=== PATIENT | male | born 1945 | race African-American/Black ===

== ENCOUNTER 2017-12-11 03:43 | Emergency (ER) | payer MEDICARE, MEDICAID ==
[~2017-12-11] VITALS: Ht 177.8 cm; Wt 86.0 kg
[2017-12-11] MEDS ORDERED: FAMOTIDINE 20MG/2ML VIAL IV STA (05:13)
[2017-12-11] MEDS ORDERED: MORPHINE SULFATE 4 MG/ML CPJ (NOT FOR IM USE) IV STA (05:13)
[2017-12-11] MEDS ORDERED: ONDANSETRON HCL 4MG/2ML INJ IV STA (05:13)
[2017-12-11] MEDS ORDERED: SODIUM CHLORIDE 0.9% 1,000 ML IV ONE ×2 (05:13→08:15)
[2017-12-11 06:25] LABS: CLARITY URINE CLEAR (CLEAR); COLOR URINE YELLOW (YELLOW); KETONES URINE NEGATIVE (NEGATIVE); LEUKOCYTE ESTERASE URINE NEGATIVE (NEGATIVE); NITRITE URINE NEGATIVE (NEGATIVE); OCCULT BLOOD URINE NEGATIVE (NEGATIVE); PH URINE 7.5 (4.5-8.0); PROTEIN URINE NEGATIVE (NEGATIVE); SPECIFIC GRAVITY URINE 1.008 (1.005-1.030); UROBILINOGEN URINE 0.2 E.U./dL (0.2-1.0)
[2017-12-11 06:25] LABS: BASOPHILS % 0.6 % (0.0-2.0); EOSINOPHILS % 1.8 % (0.0-5.0); HEMATOCRIT. 42.1 % (42.0-52.0); HEMOGLOBIN. 14.1 g/dL (14.0-18.0); LYMPHOCYTES % 36.4 % (20.0-50.0); MEAN CORPUSCULAR HEMOGLOBIN 31.1 pg (28.0-32.0); MEAN CORPUSCULAR VOLUME 92.8 fL (80.0-94.0); MEAN PLATELET VOLUME 8.9 fl (7.4-10.4); MONOCYTES % 11.9 % (2.0-8.0); NEUTROPHILS % 49.3 % (40.0-76.0); PLATELET 182 x1000/uL (130-400); RED BLOOD CELL COUNT 4.54 mill/uL (4.7-6.1); RED CELL DISTRIBUTION WIDTH 14.7 % (11.6-14.6)
[2017-12-11 06:29] LABS: CHLORIDE 103 mEq/L (98-107)
[2017-12-11] MEDS ORDERED: MORPHINE SULFATE 4 MG/ML CPJ (NOT FOR IM USE) IV ONE (09:45)
[2017-12-11] MEDS ORDERED: IOHEXOL-300 100 ML BOTTLE ONE (09:46)
[2017-12-11 10:30] VITALS: BP 140/79
== END 2017-12-11 10:30 | disposition home or self-care (01) ==
LOC: ER 04:24
DX: K29.20 Alcoholic gastritis without bleeding (principal); F10.10 Alcohol abuse, uncomplicated; I10 Essential (primary) hypertension; I25.2 Old myocardial infarction; Z98.890 Other specified postprocedural states; Y90.9 Presence of alcohol in blood, level not specified
CPT/HCPCS: 36415; 71045; 74177; 80053; 81003; 83605; 83690; 84484; 85025; 93005; 96361; 96374; 96375; 99285; J2270; J2405; J3490; J7030; Q9967

== ENCOUNTER 2021-12-09 14:15 | Emergency (ER) | payer MEDICARE, MEDICAID ==
[~2021-12-09] VITALS: Ht 177.8 cm; Wt 82.0 kg
[~2021-12-09 14:15] MED LIST: AMLO10TA80 PO; ASPI-1406 PO; ATOR40TA70 PO; BRIM.2 EACHEYE; CALC-38 PO; FINA5TAB11 PO; HYDR-4001 PO; LATA2.5D14 EACHEYE; METO25TA6 PO; OMEP40CA20 PO; TAMS-11 MT; ZOLP10TA2
[2021-12-09 14:19] VITALS: BP 153/91
[2021-12-09] MEDS ORDERED: METHOCARBAMOL 750MG TABLET PO SCH (16:15)
[2021-12-09] MEDS ORDERED: ACETAMINOPHEN 325MG TABLET PO ONE (16:15)
[2021-12-09] MEDS ORDERED: KETOROLAC 60MG/2ML VIAL IM ONE (16:15)
[2021-12-09] MEDS ORDERED: LIDOCAINE 5% PATCH TOP SCH (17:45)
[2021-12-09] MEDS ORDERED: IBUP-2028 MT (18:14)
[2021-12-09] MEDS ORDERED: METH-653 MT (18:14)
[2021-12-09] MEDS ORDERED: TOPUD PO (18:14)
[2021-12-09] MEDS ORDERED: LIDO1ADH23 TP (18:14)
[2021-12-10] MEDS ORDERED: LIDOCAINE 5% PATCH TOP SCH (09:00)
== END 2021-12-09 18:45 | disposition home or self-care (01) ==
LOC: ER 14:15
DX: M62.838 Other muscle spasm (principal); I10 Essential (primary) hypertension; Z95.1 Presence of aortocoronary bypass graft
CPT/HCPCS: 96372; 99283; J1885